=== PATIENT | female | born 1945 | race Caucasian/White ===

== ENCOUNTER 2025-02-12 11:29 | Emergency (ER) | payer MEDICARE ==
[~2025-02-12] VITALS: Ht 152.4 cm; Wt 77.3 kg
[~2025-02-12 11:29] MED LIST: ACET65TA OR; ASPI325T OR; CALCIUM CITRATE PO; COENZYME; COENZYME Q 10 PO; COUM1TAB18 OR; DILT120C3 OR; FISH1000 OR; ISOS30TA4 OR; LISI5TAB OR; MAGNESIUM/ZINC PO; METAMUCIL OR; MILKSUS OR; MIRALEX OR; NITR0.4S SL; OCEAN NASAL SPRAY; PLAV75TA2 OR; PREVASTATIN PO; STOOL SOFTNER PO; VICO5TAB OR; VITAMIN B COMPLE1 OR; [UNRECOGNIZED DRUG - OTHER] OR; [UNRECOGNIZED DRUG - OTHER] OR
[2025-02-12] MEDS ORDERED: ISOVUE-370 76% 100 ML VIAL As Ordered ONE (13:01)
[2025-02-12 13:14] LABS: BASO # 0.1 10^3/uL (0.0-0.2); BASO % 0.8 % (0.0-1.0); EOS # 0.2 10^3/uL (0.0-0.5); EOS % 4.0 % (0.0-3.0); KETONE, URINE AUTO RFX NEGATIVE (NEGATIVE); LEUKOCYTE ESTERASE UR AUTO RFX NEGATIVE (NEGATIVE); LYMPH # 1.5 10^3/uL (1.5-5.0); LYMPH % 25.2 % (24.0-44.0); MONO # 0.8 10^3/uL (0.0-0.8); MONO % 13.8 % (2.0-8.0); NEUTROPHILS # 3.4 10^3/uL (1.5-8.5); NEUTROPHILS % 55.9 % (36.0-66.0); NITRITE, URINE AUTO RFX NEGATIVE (NEGATIVE); PLATELET COUNT, AUTOMATED 257 10^3/uL (150-450); RBC, URINE AUTO RFX 0 /HPF (0-3); SQUAM EPITHELIAL CELL UR AURFX 0 /HPF (0-6); WBC, URINE AUTO RFX 0 /HPF (0-3)
[2025-02-12 13:25] LABS: ALT/SGPT 18 U/L (7.0-40); AST/SGOT 21 U/L (<34); CK-MB VALUE MASS < 1.0 NG/ML (<3.6); CPK CREATINE PHOSPHOKINASE 60 U/L (34-145)
[2025-02-12 13:37] LABS: INR 0.96
[2025-02-12 14:39] LABS: CK-MB VALUE MASS < 1.0 NG/ML (<3.6)
[2025-02-12 14:42] LABS: CPK CREATINE PHOSPHOKINASE 50 U/L (34-145)
[2025-02-12 14:49] VITALS: BP 134/61; TEMP 97.5; O2SAT 98
== END 2025-02-12 14:53 | disposition home or self-care (01) ==
LOC: M ED 12:27
DX: K59.00 Constipation, unspecified (principal); I44.7 Left bundle-branch block, unspecified; I10 Essential (primary) hypertension; E78.5 Hyperlipidemia, unspecified; F41.9 Anxiety disorder, unspecified; Z86.718 Personal history of other venous thrombosis and embolism; Z88.5 Allergy status to narcotic agent; Z88.6 Allergy status to analgesic agent; Z79.1 Long term (current) use of non-steroidal anti-inflammatories (NSAID); Z79.899 Other long term (current) drug therapy; Z79.82 Long term (current) use of aspirin
CPT/HCPCS: 36415; 74177; 80047; 80076; 81001; 82550; 82553; 83690; 84484; 85025; 85610; 93005; 99284; Q9967